=== PATIENT | male | born 1975 | race Caucasian/White ===

== ENCOUNTER → 2024-10-09 10:27 | Outpatient (REF) | payer BC, SELFPAY | LOC: RAD 10:27 | PROVIDERS: ATTENDING PHYSICIAN Student in an Organized Health Care Education/Training Program | DX: M79.662 Pain in left lower leg (principal); M25.562 Pain in left knee | CPT/HCPCS: 73564; 93971 ==

== ENCOUNTER 2025-01-18 09:02 | Outpatient (RCR) | payer BC, SELFPAY | END 2025-01-18 23:59 | disposition home or self-care (01) | LOC: RPT 09:02 | PROVIDERS: ATTENDING PHYSICIAN Physical Medicine & Rehabilitation; FAMILY PHYSICIAN Family Medicine | DX: M54.16 Radiculopathy, lumbar region (principal); R29.898 Other symptoms and signs involving the musculoskeletal system; M51.27 Other intervertebral disc displacement, lumbosacral region; R26.9 Unspecified abnormalities of gait and mobility; Z73.6 Limitation of activities due to disability | CPT/HCPCS: 97110; 97112; 97116; 97140; 97163; 97530 ==

== ENCOUNTER 2025-02-17 18:59 | Outpatient (RCR) | payer BC, SELFPAY | END 2025-02-17 23:59 | disposition home or self-care (01) | LOC: RPT 18:59 | PROVIDERS: ATTENDING PHYSICIAN Physical Medicine & Rehabilitation; FAMILY PHYSICIAN Family Medicine | DX: M54.16 Radiculopathy, lumbar region (principal); R29.898 Other symptoms and signs involving the musculoskeletal system; M51.27 Other intervertebral disc displacement, lumbosacral region; R26.9 Unspecified abnormalities of gait and mobility; Z73.6 Limitation of activities due to disability | CPT/HCPCS: 97110; 97112; 97530 ==

== ENCOUNTER 2025-03-05 08:44 | Outpatient (RCR) | payer BC, SELFPAY | END 2025-03-05 23:59 | disposition home or self-care (01) | LOC: RPT 08:44 | PROVIDERS: ATTENDING PHYSICIAN Physical Medicine & Rehabilitation; FAMILY PHYSICIAN Family Medicine | DX: M54.16 Radiculopathy, lumbar region (principal); R29.898 Other symptoms and signs involving the musculoskeletal system; M51.27 Other intervertebral disc displacement, lumbosacral region; R26.9 Unspecified abnormalities of gait and mobility; Z73.6 Limitation of activities due to disability | CPT/HCPCS: 97110; 97112 ==

== ENCOUNTER 2025-04-09 08:00 | Outpatient (RCR) | payer BC, SELFPAY | END 2025-04-09 23:59 | disposition home or self-care (01) | LOC: RPT 08:00 | PROVIDERS: ATTENDING PHYSICIAN Physical Medicine & Rehabilitation; FAMILY PHYSICIAN Family Medicine | DX: M54.16 Radiculopathy, lumbar region (principal); R29.898 Other symptoms and signs involving the musculoskeletal system; M51.27 Other intervertebral disc displacement, lumbosacral region; R26.9 Unspecified abnormalities of gait and mobility; Z73.6 Limitation of activities due to disability | CPT/HCPCS: 97110; 97112 ==

== ENCOUNTER 2025-04-30 07:53 | Outpatient (RCR) | payer BC, SELFPAY | END 2025-04-30 23:59 | disposition home or self-care (01) | LOC: RPT 07:53 | PROVIDERS: ATTENDING PHYSICIAN Physical Medicine & Rehabilitation; FAMILY PHYSICIAN Family Medicine | DX: M54.16 Radiculopathy, lumbar region (principal); R29.898 Other symptoms and signs involving the musculoskeletal system; M51.27 Other intervertebral disc displacement, lumbosacral region; R26.9 Unspecified abnormalities of gait and mobility; Z73.6 Limitation of activities due to disability | CPT/HCPCS: 97110; 97112 ==

== ENCOUNTER 2025-06-04 07:03 | Outpatient (RCR) | payer BC, SELFPAY | END 2025-06-04 23:59 | disposition home or self-care (01) | LOC: RPT 07:03 | PROVIDERS: ATTENDING PHYSICIAN Physical Medicine & Rehabilitation; FAMILY PHYSICIAN Family Medicine | DX: M54.16 Radiculopathy, lumbar region (principal); R29.898 Other symptoms and signs involving the musculoskeletal system; M51.27 Other intervertebral disc displacement, lumbosacral region; R26.9 Unspecified abnormalities of gait and mobility; Z73.6 Limitation of activities due to disability; R26.89 Other abnormalities of gait and mobility | CPT/HCPCS: 97110; 97112; 97530 ==